=== PATIENT | male | born 1935 | race American Indian/Alaskan Native ===

== ENCOUNTER 2020-10-03 06:40 | Observation (INO) | payer MEDICARE ==
[2020-10-03] MEDS ORDERED: SODIUM CHLORIDE 0.9% 1000 ML 1,000 ML IV ONE ×2 (07:46)
--- NOTE | 2020-10-03 07:53 | Emergency Department Report ---
HPI - General Chief Complaint: Syncope Time Seen by Provider: 10/03/20 07:33 - [facility] HPI: Room 22 The patient is an 85-year-old male present with a chief complaint of weakness. The patient states this morning after attempting to get up to go to the bathroom he began feeling diffusely weak. Patient states he was unable to stand up secondary to this weakness and dizziness. Patient states his legs Giving out. Patient denies losing consciousness. Patient states he has been in his usual state of health the past couple days. Patient denies history of fever cough dysuria or known contact with Covid positive patients. Patient states he has been compliant with his diabetes medication. Patient denies bright red blood per rectum or melena. Patient denies chest pain or shortness of breath ED Past Medical Hx - Past Medical History Previous Medical History?: Yes Hx Diabetes: Yes - Surgical History Past Surgical History?: Yes Additional Surgical History: prostate - Family History Family history: no significant - Social History Smoking Status: Never Smoker Substance Use Type: None - Medications Home Medications: Home Medications Medication Instructions Recorded Confirmed Last Taken Type Dorzolamide 2% Eye Drop 1 drop OU BID 10/03/20 10/03/20 Unknown History Hydrochlorothiazide 12.5 mg PO DAILY 10/03/20 10/03/20 Unknown History Losartan 100 mg PO DAILY 10/03/20 10/03/20 Unknown History Pioglitazone-Metformin 15-500 2 tab PO DAILY 10/03/20 10/03/20 Unknown History Simvastatin 20 mg PO DAILY 10/03/20 10/03/20 Unknown History Warfarin 7.5 mg PO DAILY 10/03/20 10/03/20 Unknown History ED Review of Systems ROS: Stated complaint: SYNCOPE Other details as noted in HPI Constitutional: weakness. denies: fever Eyes: denies: eye pain ENT: denies: throat pain Respiratory: denies: shortness of breath Cardiovascular: denies: chest pain Endocrine: no symptoms reported Gastrointestinal: denies: abdominal pain Genitourinary: denies: dysuria Musculoskeletal: denies: back pain Neurological: denies: headache Physical Exam - Physical Exam Vital Signs: Vital Signs 10/03/20 06:51 Temperature 97.9 F Pulse Rate 72 Respiratory 13 Rate Blood Pressure 94/51 [left arm] O2 Sat by Pulse 100 Oximetry Physical Exam: GENERAL: The patient is well-developed well-nourished male lying on stretcher not appearing to be in acute distress. [] HEENT: Normocephalic. Atraumatic. Extraocular motions are intact. Patient has moist mucous membranes. NECK: Supple. Trachea midline CHEST/LUNGS: Clear to auscultation. There is no respiratory distress noted. HEART/CARDIOVASCULAR: Regular. There is no tachycardia. There is no gallop rub or murmur. ABDOMEN: Abdomen is soft, nontender. Patient has normal bowel sounds. There is no abdominal distention. SKIN: There is no rash. There is no edema. There is no diaphoresis. NEURO: The patient is awake, alert, and oriented. The patient is cooperative. The patient has no focal neurologic deficits. The patient has normal speech MUSCULOSKELETAL: There is no evidence of acute injury. ED Course Vital Signs 10/03/20 06:51 Temperature 97.9 F Pulse Rate 72 Respiratory 13 Rate Blood Pressure 94/51 [left arm] O2 Sat by Pulse 100 Oximetry ED Medical Decision Making - Lab Data Result diagrams: 10/03/20 08:11 10/03/20 08:11 Laboratory Tests 10/03/20 10/03/20 10/03/20 06:47 08:11 08:11 WBC 4.7 RBC 3.86 Hgb 12.3 Hct 36.9 MCV 96 H MCH 32 MCHC 33 RDW 13.9 Plt Count 133 L Lymph % (Auto) 12.8 L Moore % (Auto) 4.6 Eos % (Auto) 0.7 Baso % (Auto) 0.4 Lymph # (Auto) 0.6 L Moore # (Auto) 0.2 Eos # (Auto) 0.0 Baso # (Auto) 0.0 Seg Neutrophils % 81.5 H Seg Neutrophils # 3.9 PT INR APTT VBG pH Sodium 126 L Potassium 5.0 Chloride 89.4 L Carbon Dioxide 25 Anion Gap 17 BUN 41 H Creatinine 2.9 H Estimated GFR 25 BUN/Creatinine Ratio 14 Glucose 680 H* POC Glucose 595 H Lactic Acid Calcium 9.1 Total Bilirubin 0.40 AST 26 ALT 15 Alkaline Phosphatase 116 Total Creatine Kinase 131 CK-MB (CK-2) 4.8 H CK-MB (CK-2) Rel Index 3.6 Troponin T NT-Pro-B Natriuret Pep Total Protein 6.8 Albumin 3.4 L Albumin/Globulin Ratio 1.0 TSH Free T4 Urine Color Urine Turbidity Urine pH Ur Specific [place] Urine Protein Urine Glucose (UA) Urine Ketones Urine Blood Urine Nitrite Urine Bilirubin Urine Urobilinogen Ur Leukocyte Esterase Urine WBC (Auto) Urine RBC (Auto) U Epithel Cells (Auto) Urine Mucus 10/03/20 10/03/20 10/03/20 08:11 08:11 08:11 WBC RBC Hgb Hct MCV MCH MCHC RDW Plt Count Lymph % (Auto) Moore % (Auto) Eos % (Auto) Baso % (Auto) Lymph # (Auto) Moore # (Auto) Eos # (Auto) Baso # (Auto) Seg Neutrophils % Seg Neutrophils # PT 57.9 H INR > 17.67 H* APTT VBG pH Sodium Potassium Chloride Carbon Dioxide Anion Gap BUN Creatinine Estimated GFR BUN/Creatinine Ratio Glucose POC Glucose Lactic Acid 2.90 H* Calcium Total Bilirubin AST ALT Alkaline Phosphatase Total Creatine Kinase CK-MB (CK-2) CK-MB (CK-2) Rel Index Troponin T 0.019 NT-Pro-B Natriuret Pep 550.3 Total Protein Albumin Albumin/Globulin Ratio TSH Free T4 Urine Color Urine Turbidity Urine pH Ur Specific [place] Urine Protein Urine Glucose (UA) Urine Ketones Urine Blood Urine Nitrite Urine Bilirubin Urine Urobilinogen Ur Leukocyte Esterase Urine WBC (Auto) Urine RBC (Auto) U Epithel Cells (Auto) Urine Mucus 10/03/20 10/03/20 10/03/20 08:11 08:11 09:21 WBC RBC Hgb Hct MCV MCH MCHC RDW Plt Count Lymph % (Auto) Moore % (Auto) Eos % (Auto) Baso % (Auto) Lymph # (Auto) Moore # (Auto) Eos # (Auto) Baso # (Auto) Seg Neutrophils % Seg Neutrophils # PT INR APTT VBG pH 7.262 L Sodium Potassium Chloride Carbon Dioxide Anion Gap BUN Creatinine Estimated GFR BUN/Creatinine Ratio Glucose POC Glucose Lactic Acid Calcium Total Bilirubin AST ALT Alkaline Phosphatase Total Creatine Kinase CK-MB (CK-2) CK-MB (CK-2) Rel Index Troponin T NT-Pro-B Natriuret Pep Total Protein Albumin Albumin/Globulin Ratio TSH 2.090 Free T4 1.31 Urine Color Straw Urine Turbidity Clear Urine pH 5.0 Ur Specific [place] 1.018 Urine Protein <15 mg/dl Urine Glucose (UA) >=500 Urine Ketones Neg Urine Blood Sm Urine Nitrite Neg Urine Bilirubin Neg Urine Urobilinogen < 2.0 Ur Leukocyte Esterase Neg Urine WBC (Auto) 1.0 Urine RBC (Auto) 2.0 U Epithel Cells (Auto) 1.0 Urine Mucus Few 10/03/20 10/03/20 10/03/20 10:24 10:48 10:48 WBC RBC Hgb Hct MCV MCH MCHC RDW Plt Count Lymph % (Auto) Moore % (Auto) Eos % (Auto) Baso % (Auto) Lymph # (Auto) Moore # (Auto) Eos # (Auto) Baso # (Auto) Seg Neutrophils % Seg Neutrophils # PT 64.3 H INR APTT 49.2 H VBG pH Sodium Potassium Chloride Carbon Dioxide Anion Gap BUN Creatinine Estimated GFR BUN/Creatinine Ratio Glucose POC Glucose 562 H Lactic Acid 1.70 Calcium Total Bilirubin AST ALT Alkaline Phosphatase Total Creatine Kinase CK-MB (CK-2) CK-MB (CK-2) Rel Index Troponin T NT-Pro-B Natriuret Pep Total Protein Albumin Albumin/Globulin Ratio TSH Free T4 Urine Color Urine Turbidity Urine pH Ur Specific [place] Urine Protein Urine Glucose (UA) Urine Ketones Urine Blood Urine Nitrite Urine Bilirubin Urine Urobilinogen Ur Leukocyte Esterase Urine WBC (Auto) Urine RBC (Auto) U Epithel Cells (Auto) Urine Mucus - EKG Data -: EKG Interpreted by Me EKG shows normal: sinus rhythm Rate: normal - EKG Data When compared to previous EKG there are: previous EKG unavailable Interpretation: nonspecific ST-T wave noah, other (PVC) - Differential Diagnosis Sepsis, ACS, dehydration, symptomatic anemia, DKA Critical care attestation.: If time is entered above; I have spent that time in minutes in the direct care of this critically ill patient, excluding procedure time. ED Disposition Clinical Impression: Near syncope, Weakness, Hyperglycemia Disposition: DC-[id number] OP ADMIT IP TO THIS HOSP Is pt being admited?: Yes Does the pt Need Aspirin: No Condition: Fair Referrals: PRIMARY CARE, [Primary Care Provider] - 3-5 Days Time of Disposition: 11:53 (Hospitalist notified (Dr. Monte))
[2020-10-03 08:39] LABS: Basophils % (Auto) 0.4 % (0.0-1.8); Eosinophils % (Auto) 0.7 % (0.0-4.3); Hematocrit 36.9 % (35.5-45.6); Hemoglobin 12.3 gm/dl (11.8-15.2); Lymphocytes # (Auto) 0.6 K/mm3 (1.2-5.4); Lymphocytes % (Auto) 12.8 % (13.4-35.0); Mean Corpuscular HGB Conc 33 % (32-34); Mean Corpuscular Volume 96 fl (84-94); Monocytes # (Auto) 0.2 K/mm3 (0.0-0.8); Monocytes % (Auto) 4.6 % (0.0-7.3); Platelet Count 133 K/mm3 (140-440); Red Blood Count 3.86 M/mm3 (3.65-5.03); Red Cell Distribution Width 13.9 % (13.2-15.2)
[2020-10-03 09:06] LABS: Creatine Kinase MB 4.8 ng/mL (0.0-4.0)
[2020-10-03 09:09] LABS: Albumin 3.4 g/dL (3.9-5); Calcium 9.1 mg/dL (8.4-10.2)
[2020-10-03 09:26] LABS: INR > 17.67 (0.87-1.13)
[2020-10-03 09:52] LABS: Bilirubin,Urine NEG (Negative); Blood,Urine SM (Negative); Color,Urine Straw (Yellow); Mucus,Urine FEW /HPF; Protein,Urine <15 mg/dL mg/dL (Negative); Urobilinogen,Urine < 2.0 mg/dL (<2.0)
[2020-10-03 10:08] LABS: Free T4 (Free Thyroxine) 1.31 ng/dL (0.76-1.46)
[2020-10-03 11:41] LABS: Partial Thromboplastin Time 49.2 Sec. (24.2-36.6)
[2020-10-03] MEDS ORDERED: ALBUTEROL 2.5 MG/3 ML NEBU IH PRN (11:49)
[2020-10-03] MEDS ORDERED: ONDANSETRON 4 MG/2 ML INJ IV PRN (11:49)
[2020-10-03] MEDS ORDERED: ACETAMINOPHEN 325 MG TAB PO PRN (11:49)
--- NOTE | 2020-10-03 11:49 | History and Physical Report ---
History of Present Illness Chief complaint: I feel weak, and I dont have an appetite History of present illness: 85 YO Male with HTN, DM, HLD,Vascular Dementia, Cerebral Atherosclerosis currently on therapeutic anticoagulation with coumadin presents to ED for evaluation. Patient states that he has been "feeling weak" over the past 3 days with worsening symptoms over the same timeframe. Patient states that he experi enced a sudden onset of worsening symptoms this morning while attempting to ambulate to the bathroom. Patient also acknowledges feeling dizzy and lightheaded. Patient acknowledges decreased exercise tolerance, dyspnea on exertion, dyspnea at rest. EMS was notified and upon arrival the patient was found to be in distress and subsequently transported to [facility] for further care and evaluation of the aforementioned symptoms. The patient was seen and evaluated in the emergency department. All lab and imaging studies reviewed. The patient was found to have symptoms consistent with diastolic congestive heart failure, orthostatic hypotension, uncontrolled diabetes mellitus, malnutrition, debility, and generalized weakness. Patient found to have orthostatic hypotension on exam. Patient also found to have a supratherapeutic INR of 17.67 with increased risk of fall and development of spontaneous hemorrhage. Patient admitted to telemetry and initiated on CHF protocol. Patient treated with vitamin K and transfusion of fresh frozen plasma and discontinuation of therapeutic anticoagulation. Patient denies fever, chills, chest pain, palpitations, productive cough, skin rash, recent ill contacts, or known exposure to COVID-19. No prior admission for review. All medication listed at time of admission has been reconciled. Advanced care planning conducted in ED. Past History Past Medical History: diabetes, hypertension, hyperlipidemia Past Surgical History: Other (prostate) Social history: single. denies: smoking, alcohol abuse Family history: diabetes, hypertension Medications and Allergies Allergies Allergy/AdvReac Type Severity Reaction Status Date / Time No Known Allergies Allergy Verified 10/03/20 11:52 Home Medications Medication Instructions Recorded Confirmed Last Taken Type Dorzolamide 2% Eye Drop 1 drop OU BID 10/03/20 10/03/20 Unknown History Hydrochlorothiazide 12.5 mg PO DAILY 10/03/20 10/03/20 Unknown History Losartan 100 mg PO DAILY 10/03/20 10/03/20 Unknown History Pioglitazone-Metformin 15-500 2 tab PO DAILY 10/03/20 10/03/20 Unknown History Simvastatin 20 mg PO DAILY 10/03/20 10/03/20 Unknown History Warfarin 7.5 mg PO DAILY 10/03/20 10/03/20 Unknown History Review of Systems Constitutional: no weight loss, no weight gain, no chills, no sweats Ears, nose, mouth and throat: no ear pain, no tinnitis, no nasal congestion, no nasal discharge, no sinus pressure Cardiovascular: shortness of breath, dyspnea on exertion, decreased exercise tolerance, no chest pain, no orthopnea, no palpitations, no rapid/irregular heart beat, no edema Respiratory: no cough, no cough with sputum, no excessive sputum Gastrointestinal: no abdominal pain, no nausea, no vomiting, no diarrhea Genitourinary Male: no hematuria, no nocturia Rectal: no pain, no incontinence Musculoskeletal: no neck stiffness, no shooting arm pain, no shooting leg pain, no redness of joints Integumentary: no rash, no pruritis, no sores Neurological: no head injury, no weakness, no parathesias Psychiatric: no anxiety, no sleep disturbances, no hypersomnia, no change in appetite, no disorientation Endocrine: no cold intolerance, no excessive thirst, no polydipsia, no excessive sweating Hematologic/Lymphatic: no easy bruising, no easy bleeding Allergic/Immunologic: no urticaria, no allergic rhinitis, no wheezing, no persistent infections, no anaphylaxis, no angioedema Exam - Constitutional Vitals: Temp Pulse Resp BP Pulse Ox 97.9 F 59 L 11 L 93/61 97 10/03/20 06:51 10/03/20 10:30 10/03/20 10:30 10/03/20 10:30 10/03/20 10:30 General appearance: Present: mild distress, cachectic - EENT Eyes: Present: PERRL ENT: hearing intact, clear oral mucosa - Neck Neck: Present: supple, normal ROM - Respiratory Respiratory effort: normal Respiratory: bilateral: CTA - Cardiovascular Heart Sounds: Present: S1 & S2. Absent: rub, click - Extremities Extremities: pulses symmetrical, No edema Peripheral Pulses: within normal limits - Abdominal General gastrointestinal: Present: soft, non-tender, non-distended, normal bowel sounds Male genitourinary: Present: normal - Integumentary Integumentary: Present: clear, warm, dry - Musculoskeletal Musculoskeletal: generalized weakness - Psychiatric Psychiatric: appropriate mood/affect, intact judgment & insight - Neurologic Neurologic: CNII-XII intact, moves all extremities, no gait normal HEART Score - HEART Score Troponin: Troponin T 0.019 ng/mL (0.00-0.029) 10/03/20 08:11 Results - Labs CBC & Chem 7: 10/03/20 08:11 10/04/20 11:15 Labs: Abnormal lab results 10/03/20 10/03/20 10/03/20 Range/Units 06:47 08:11 08:11 MCV 96 H (84-94) fl Plt Count 133 L (140-440) K/mm3 Lymph % (Auto) 12.8 L (13.4-35.0) % Lymph # (Auto) 0.6 L (1.2-5.4) K/mm3 Seg Neutrophils % 81.5 H (40.0-70.0) % PT (12.2-14.9) Sec. INR (0.87-1.13) APTT (24.2-36.6) Sec. VBG pH (7.320-7.420) Sodium 126 L (137-145) mmol/L Chloride 89.4 L (98-107) mmol/L BUN 41 H (9-20) mg/dL Creatinine 2.9 H (0.8-1.3) mg/dL Glucose 680 H* (75-100) mg/dL POC Glucose 595 H (70-105) mg/dL Lactic Acid (0.7-2.0) mmol/L CK-MB (CK-2) 4.8 H (0.0-4.0) ng/mL Albumin 3.4 L (3.9-5) g/dL 10/03/20 10/03/20 10/03/20 Range/Units 08:11 08:11 08:11 MCV (84-94) fl Plt Count (140-440) K/mm3 Lymph % (Auto) (13.4-35.0) % Lymph # (Auto) (1.2-5.4) K/mm3 Seg Neutrophils % (40.0-70.0) % PT 57.9 H (12.2-14.9) Sec. INR > 17.67 H* (0.87-1.13) APTT (24.2-36.6) Sec. VBG pH 7.262 L (7.320-7.420) Sodium (137-145) mmol/L Chloride (98-107) mmol/L BUN (9-20) mg/dL Creatinine (0.8-1.3) mg/dL Glucose (75-100) mg/dL POC Glucose (70-105) mg/dL Lactic Acid 2.90 H* (0.7-2.0) mmol/L CK-MB (CK-2) (0.0-4.0) ng/mL Albumin (3.9-5) g/dL 10/03/20 10/03/20 Range/Units 10:24 10:48 MCV (84-94) fl Plt Count (140-440) K/mm3 Lymph % (Auto) (13.4-35.0) % Lymph # (Auto) (1.2-5.4) K/mm3 Seg Neutrophils % (40.0-70.0) % PT 64.3 H (12.2-14.9) Sec. INR (0.87-1.13) APTT 49.2 H (24.2-36.6) Sec. VBG pH (7.320-7.420) Sodium (137-145) mmol/L Chloride (98-107) mmol/L BUN (9-20) mg/dL Creatinine (0.8-1.3) mg/dL Glucose (75-100) mg/dL POC Glucose 562 H (70-105) mg/dL Lactic Acid (0.7-2.0) mmol/L CK-MB (CK-2) (0.0-4.0) ng/mL Albumin (3.9-5) g/dL Assessment and Plan - Patient Problems (1) Diastolic CHF Current Visit: Yes Status: Acute Qualifiers: Heart failure chronicity: acute Qualified Code(s): I50.31 - Acute diastolic (congestive) heart failure Plan to address problem: Strict I/O, monitor urine output every shift, daily weight, afterload reduction, blood pressure control, echocardiogram ordered and is pending at time of admission, supportive care. (2) Supratherapeutic INR Current Visit: Yes Status: Acute Plan to address problem: INR repeated and found to be supratherapeutic. Patient treated with FFP and vitamin K with repeat coagulation profile. (3) Uncontrolled diabetes mellitus Current Visit: Yes Status: Acute Qualifiers: Glycemic state: with hyperglycemia Plan to address problem: Sliding-scale insulin therapy, Accu-Chek, consistent carbohydrate diet, hypoglycemia protocol. (4) Debility Current Visit: Yes Status: Acute Plan to address problem: Physical therapy consulted, supportive care. (5) Vascular dementia Current Visit: Yes Status: Acute Qualifiers: Dementia behavioral disturbance: without behavioral disturbance Qualified Code(s): F01.50 - Vascular dementia without behavioral disturbance Plan to address problem: Supportive care, verbal prompting, verbal redirection, supportive care, benzodiazepine therapy as clinically indicated (6) Cerebral atherosclerosis Current Visit: Yes Status: Acute Plan to address problem: Supportive care, hold anticoagulation at this time due to supratherapeutic INR. (7) DVT prophylaxis Current Visit: Yes Status: Acute Plan to address problem: SCD to bilateral lower extremities while in bed, patient INR is currently supratherapeutic. Hold anticoagulation at this time. (8) Advance care planning Current Visit: Yes Status: Acute Plan to address problem: Disease education conducted, care plan discussed, prognosis discussed, patient is full code, patient knowledges understanding and agreement with care plan, +30 minutes.
[2020-10-03 12:29] LABS: INR > 17.67 (0.87-1.13)
[2020-10-03] MEDS ORDERED: SODIUM CHLORIDE 0.9% 500 ML 500 ML IV NR (14:58)
[2020-10-03] MEDS ORDERED: DEXTROSE 50% IN WATER (25GM) 50 ML SYRINGE IV PRN (15:09)
[2020-10-03] MEDS ORDERED: PHYTONADIONE(ADULT ONLY) 10 MG in SODIUM CHLORIDE 0.9% 50 ML IV ONE (15:30)
[2020-10-03] MEDS: INSULIN LISPRO 100 UNIT/ML VIAL 3 mL SUB-Q SCH ×2 (16:35→22:45)
[2020-10-03] MEDS ORDERED: DORZOLAMIDE 2% OU SCH (22:00)
[2020-10-03] MEDS ORDERED: EYE OU SCH (22:00)
[2020-10-03] MEDS: PRAVASTATIN 40 MG TAB PO SCH (22:46)
[2020-10-04] MEDS: INSULIN LISPRO 100 UNIT/ML VIAL 3 mL SUB-Q SCH ×4 (05:35→22:22)
[2020-10-04] MEDS ORDERED: NON-FORMULARY EACH (Simvastatin 20 MG) PO SCH (10:00)
[2020-10-04 11:58] LABS: INR 1.13 (0.87-1.13)
[2020-10-04] MEDS ORDERED: PNEUMOCOCCAL 23 Valent 0.5 ML VIAL IM ONE (12:00)
[2020-10-04] MEDS ORDERED: FLU VACC QUAD 2020-2021 (6 months +)/PF 60 0.5 ML SYRINGE IM ONE (12:00)
[2020-10-04 12:06] LABS: Calcium 9.2 mg/dL (8.4-10.2)
--- NOTE | 2020-10-04 19:32 | Progress Note ---
Assessment and Plan - Patient Problems (1) Diastolic CHF Current Visit: Yes Status: Acute Qualifiers: Heart failure chronicity: acute Qualified Code(s): I50.31 - Acute diastolic (congestive) heart failure Plan to address problem: Strict I/O, monitor urine output every shift, daily weight, afterload reduction, blood pressure control, echocardiogram reviewed (2) Supratherapeutic INR Current Visit: Yes Status: Acute Plan to address problem: Resolved (3) Uncontrolled diabetes mellitus Current Visit: Yes Status: Acute Qualifiers: Glycemic state: with hyperglycemia Plan to address problem: Sliding-scale insulin therapy, Accu-Chek, consistent carbohydrate diet, hypogly cemia protocol. (4) Debility Current Visit: Yes Status: Acute Plan to address problem: Physical therapy consulted, supportive care. (5) Vascular dementia Current Visit: Yes Status: Acute Qualifiers: Dementia behavioral disturbance: without behavioral disturbance Qualified Code(s): F01.50 - Vascular dementia without behavioral disturbance Plan to address problem: Supportive care, verbal prompting, verbal redirection, supportive care, benzodiazepine therapy as clinically indicated (6) Acute kidney injury (MAMADOU) with acute tubular necrosis (ATN) Current Visit: Yes Status: Acute Plan to address problem: Monitor urine output every shift, IV fluid resuscitation therapy, repeat BMP, monitor GFR, monitor serum creatinine. (7) Cerebral atherosclerosis Current Visit: Yes Status: Acute Plan to address problem: Supportive care, hold anticoagulation at this time due to supratherapeutic INR. (8) Advance care planning Current Visit: Yes Status: Acute Plan to address problem: Disease education conducted, care plan discussed, prognosis discussed, patient is full code, patient knowledges understanding and agreement with care plan, +30 minutes. (9) DVT prophylaxis Current Visit: Yes Status: Acute Plan to address problem: SCD to bilateral lower extremities while in bed. Hold anticoagulation at this time. History Interval history: 85 YO Male HD #2 with CHF, Supratherapeutic INR, MAMADOU with ATN, HTN, DM, HLD,Vascular Dementia, Cerebral Atherosclerosis. Patient acknowledges feeling weak. Patient denies pain. No reported nursing events. No active bleeding. INR has normalized with supportive therapy. Hospitalist Physical - Constitutional Vitals: Temp Pulse Resp BP Pulse Ox 98 F 36 L 18 98/57 98 10/04/20 15:00 10/04/20 15:58 10/04/20 08:20 10/04/20 15:00 10/04/20 15:58 General appearance: Present: mild distress, cachectic - EENT Eyes: Present: PERRL ENT: hearing intact - Neck Neck: Present: supple - Respiratory Respiratory: bilateral: CTA - Cardiovascular Rhythm: regular Heart Sounds: Present: S1 & S2 - Extremities Extremities: no ischemia Peripheral Pulses: within normal limits - Abdominal General gastrointestinal: soft, non-tender, non-distended - Integumentary Integumentary: Present: clear, dry - Psychiatric Psychiatric: appropriate mood/affect, cooperative - Neurologic Neurologic: CNII-XII intact HEART Score - HEART Score Troponin: Troponin T 0.019 ng/mL (0.00-0.029) 10/03/20 08:11 Results - Labs CBC & Chem 7: 10/03/20 08:11 10/04/20 11:15 Labs: Laboratory Last Values WBC 4.7 K/mm3 (4.5-11.0) 10/03/20 08:11 RBC 3.86 M/mm3 (3.65-5.03) 10/03/20 08:11 Hgb 12.3 gm/dl (11.8-15.2) 10/03/20 08:11 Hct 36.9 % (35.5-45.6) 10/03/20 08:11 MCV 96 fl (84-94) H 10/03/20 08:11 MCH 32 pg (28-32) 10/03/20 08:11 MCHC 33 % (32-34) 10/03/20 08:11 RDW 13.9 % (13.2-15.2) 10/03/20 08:11 Plt Count 133 K/mm3 (140-440) L 10/03/20 08:11 Lymph % (Auto) 12.8 % (13.4-35.0) L 10/03/20 08:11 [place] % (Auto) 4.6 % (0.0-7.3) 10/03/20 08:11 Eos % (Auto) 0.7 % (0.0-4.3) 10/03/20 08:11 Baso % (Auto) 0.4 % (0.0-1.8) 10/03/20 08:11 Lymph # (Auto) 0.6 K/mm3 (1.2-5.4) L 10/03/20 08:11 [place] # (Auto) 0.2 K/mm3 (0.0-0.8) 10/03/20 08:11 Eos # (Auto) 0.0 K/mm3 (0.0-0.4) 10/03/20 08:11 Baso # (Auto) 0.0 K/mm3 (0.0-0.1) 10/03/20 08:11 Seg Neutrophils % 81.5 % (40.0-70.0) H 10/03/20 08:11 Seg Neutrophils # 3.9 K/mm3 (1.8-7.7) 10/03/20 08:11 PT 14.4 Sec. (12.2-14.9) 10/04/20 11:15 INR 1.13 (0.87-1.13) 10/04/20 11:15 APTT 49.2 Sec. (24.2-36.6) H 10/03/20 10:48 VBG pH 7.262 (7.320-7.420) L 10/03/20 08:11 Sodium 131 mmol/L (137-145) L 10/04/20 11:15 Potassium 4.3 mmol/L (3.6-5.0) 10/04/20 11:15 Chloride 95.8 mmol/L (98-107) L 10/04/20 11:15 Carbon Dioxide 27 mmol/L (22-30) 10/04/20 11:15 Anion Gap 13 mmol/L 10/04/20 11:15 BUN 34 mg/dL (9-20) H 10/04/20 11:15 Creatinine 2.1 mg/dL (0.8-1.3) H 10/04/20 11:15 Estimated GFR 37 ml/min 10/04/20 11:15 BUN/Creatinine Ratio 16 % 10/04/20 11:15 Glucose 277 mg/dL (75-100) H 10/04/20 11:15 POC Glucose 294 mg/dL (70-105) H 10/04/20 15:56 Lactic Acid 1.70 mmol/L (0.7-2.0) 10/03/20 10:48 Calcium 9.2 mg/dL (8.4-10.2) 10/04/20 11:15 Total Bilirubin 0.40 mg/dL (0.1-1.2) 10/03/20 08:11 AST 26 units/L (5-40) 10/03/20 08:11 ALT 15 units/L (7-56) 10/03/20 08:11 Alkaline Phosphatase 116 units/L (35-129) 10/03/20 08:11 Total Creatine Kinase 131 units/L (55-170) 10/03/20 08:11 CK-MB (CK-2) 4.8 ng/mL (0.0-4.0) H 10/03/20 08:11 CK-MB (CK-2) Rel Index 3.6 (0-4) 10/03/20 08:11 Troponin T 0.019 ng/mL (0.00-0.029) 10/03/20 08:11 NT-Pro-B Natriuret Pep 550.3 pg/mL (0-900) 10/03/20 08:11 Total Protein 6.8 g/dL (6.3-8.2) 10/03/20 08:11 Albumin 3.4 g/dL (3.9-5) L 10/03/20 08:11 Albumin/Globulin Ratio 1.0 % 10/03/20 08:11 TSH 2.090 mlU/mL (0.270-4.200) 10/03/20 08:11 Free T4 1.31 ng/dL (0.76-1.46) 10/03/20 08:11 Urine Color Straw (Yellow) 10/03/20 09:21 Urine Turbidity Clear (Clear) 10/03/20 09:21 Urine pH 5.0 (5.0-7.0) 10/03/20 09:21 Ur Specific [place] 1.018 (1.003-1.030) 10/03/20 09:21 Urine Protein <15 mg/dl mg/dL (Negative) 10/03/20 09:21 Urine Glucose (UA) >=500 mg/dL (Negative) 10/03/20 09:21 Urine Ketones Neg mg/dL (Negative) 10/03/20 09:21 Urine Blood Sm (Negative) 10/03/20 09:21 Urine Nitrite Neg (Negative) 10/03/20 09:21 Urine Bilirubin Neg (Negative) 10/03/20 09:21 Urine Urobilinogen < 2.0 mg/dL (<2.0) 10/03/20 09:21 Ur Leukocyte Esterase Neg (Negative) 10/03/20 09:21 Urine WBC (Auto) 1.0 /HPF (0.0-6.0) 10/03/20 09:21 Urine RBC (Auto) 2.0 /HPF (0.0-6.0) 10/03/20 09:21 U Epithel Cells (Auto) 1.0 /HPF (0-13.0) 10/03/20 09:21 Urine Mucus Few /HPF 10/03/20 09:21 Blood Type O POSITIVE 10/03/20 18:51 Microbiology: Microbiology 10/03/20 08:11 Peripheral/Venous Blood Culture - Preliminary NO GROWTH AFTER 24 HOURS 10/03/20 08:11 Peripheral/Venous Blood Culture - Preliminary NO GROWTH AFTER 24 HOURS - Diagnostic Impressions Diagnostic Impressions: Echocardiogram 10/03/20 11:51 Transthoracic Echocardiogram Indication: Syncope BP: 93/61 HR: 51 Conclusions *Global left ventricular systolic function is normal. *The estimated ejection fraction is 50-55%. *Abnormal left ventricular diastolic filling is observed, consistent with impaired relaxation. *The right ventricular global systolic function is normal. *There is mild aortic regurgitation. *There is no evidence of mitral regurgitation. *There is mild to moderate tricuspid regurgitation. *The right ventricular systolic pressure is calculated at 37 mmHg. *There is mild dilatation of the ascending aorta. Findings Left Ventricle: The left ventricular chamber size is normal. Global left ventricular systolic function is normal. The estimated ejection fraction is 50-55%. Abnormal left ventricular diastolic filling is observed, consistent with impaired relaxation. Left Atrium: The left atrial chamber size is normal. Right Ventricle: The right ventricular cavity size is normal. The right ventricular global systolic function is normal. Right Atrium: The right atrial cavity size is normal. Aortic Valve: The aortic valve leaflets are mildly thickened. There is mild aortic regurgitation. Mitral Valve: There is mitral annular calcification. The mitral valve leaflets are mildly thickened. There is no evidence of mitral regurgitation. Tricuspid Valve: The tricuspid valve leaflets are normal. There is mild to moderate tricuspid regurgitation. The right ventricular systolic pressure is calculated at 37 mmHg. Pulmonic Valve: The pulmonic valve is not well visualized. Pericardium: There is no pericardial effusion. Aorta: There is mild dilatation of the ascending aorta. Venous: The inferior vena cava appears normal. Measurements Chambers 2D Name Value Normal Range IVSd (2D) 1.06 cm (0.6 - 1.1) LVPWd (2D) 1 cm (0.6 - 1.1) LVIDd (2D) 4.57 cm (3.7 - 5.6) LVIDs (2D) 3.68 cm (2 - 3.8) LV FS (2D) 19.4 % - EF Teichholz (2D) 40 % - Ao root diameter (2D) 4.12 cm (2 - 3.7) Volumes/Mass Name Value Normal Range LA ESV SP 4CH (A/L) 18.57 ml - LA ESV SP 2CH (A/L) 55.7 ml - LA ESV BP (A/L) 35.84 ml - LA ESV BP (A/L) index 17.31 ml/m2 - LA ESV SP 4CH (MOD) 16.79 ml - LA ESV SP 2CH (MOD) 53.99 ml - LA ESV BP (MOD) 33.19 ml - LA ESV BP (MOD) index 16.03 ml/m2 - Diastolic/Systolic Function Name Value Normal Range MV E-wave Vmax 0.36 m/sec - MV deceleration time 223.7 msec - MV A-wave Vmax 0.79 m/sec - MV E:A ratio 0.46 ratio - Aortic Valve Name Value Normal Range AV Vmax 1.15 m/sec - AV VTI 22.71 cm - AV peak gradient 5.31 mmHg - AV mean gradient 2.94 mmHg - LVOT diameter 2.07 cm - LVOT Vmax 0.98 m/sec - LVOT VTI 23.86 cm - LVOT peak gradient 3.82 mmHg - LVOT mean gradient 2 mmHg - SV LVOT 80.57 ml - ENRIQUE (continuity Vmax) 2.86 cm2 - ENRIQUE (continuity VTI) 3.55 cm2 - AR PHT 679.44 msec - AR peak gradient 68.68 mmHg - Tricuspid Valve Name Value Normal Range TR Vmax 2.9 m/sec - TR peak gradient 34 mmHg - RAP 3 mmHg - RVSP 37 mmHg - Day/IV: Voiding Method Toilet IV Catheter Type [left ac] Peripheral IV IV Catheter Type [Right INT / Saline Lock Antecubital] Active Medications - Current Medications Current Medications: Generic Name Dose Route Start Last Admin Trade Name Freq PRN Reason Stop Dose Admin Acetaminophen 650 mg 10/03/20 11:49 Acetaminophen 325 Mg Tab PO Q4H PRN Pain MILD(1-3)/Fever >100.5/CHAO Albuterol 2.5 mg 10/03/20 11:49 Albuterol 2.5 Mg/3 Ml Nebu IH Q4HRT PRN Shortness Of Breath Dextrose 50 ml 10/03/20 15:09 Dextrose 50% In Water (25gm) 50 Ml Syringe IV Q30MIN PRN Hypoglycemia Protocol Insulin Human Lispro 0 unit 10/03/20 16:00 10/04/20 18:48 Insulin Lispro 100 Unit/Ml Vial 3 Ml SUB-Q 6 unit Q6H EVERETT Administration Protocol Miscellaneous Medication 1 drop 10/03/20 22:00 Dorzolamide 2% Eye Drop OU BID EVERETT Ondansetron HCl 4 mg 10/03/20 11:49 Ondansetron 4 Mg/2 Ml Inj IV Q8H PRN Nausea And Vomiting Pravastatin Sodium 40 mg 10/03/20 22:00 10/03/20 22:46 Pravastatin 40 Mg Tab PO 40 mg QHS EVERETT Administration Sodium Chloride 10 ml 10/03/20 22:00 10/03/20 22:46 Sodium Chloride 0.9% 10 Ml Flush Syringe IV 10 ml BID EVERETT Administration Sodium Chloride 10 ml 10/03/20 11:49 Sodium Chloride 0.9% 10 Ml Flush Syringe IV PRN PRN LINE FLUSH Nutrition/Malnutrition Assess - Dietary Evaluation Nutrition/Malnutrition Findings: Nutrition Notes Start: 10/04/20 10:08 Freq: Status: Active Protocol: Document 10/04/20 10:08 LM (Rec: 10/04/20 10:15 LM [id number]) Nutrition Notes Need for Assessment generated from: MD Order,bus mechanic,MST Initial or Follow up Assessment Current Diagnosis Diabetes,Hypertension,Heart Failure,Hyperlipidemia Other Pertinent Diagnosis Dementia Current Diet Cardiac/consistent CHO Labs/Tests Reviewed Pertinent Medications Reviewed Height 6 ft 4 in Weight 81.6 kg Usual Body Weight 98 kg [place] Body Weight (kg) 91.81 BMI 21.9 Weight change and time frame 8% wt loss in 2 months Weight Status Underweight Subjective/Other Information MD consult for poor oral intake and ONS. RN screen for MST. Pt stated he ate some of breafkast. Observed pt ate 75% of breakfast tray. Pt stated he has lost 15 lb in 2 months. Pt has clavicle wasting. Burn Absent Trauma Absent GI Symptoms None Current % PO Good (75-100%) Minimum of two criteria Yes Interpretation of Weight Loss (severe) >5% in 1 month Muscle Mass Mild Depletion (non-severe) #1 Nutrition Diagnosis Malnutrition Etiology advanced age, chronic illness As Evidenced by Signs and Symptoms Pt with 8% wt loss in 2 months , clavicle wasting Is patient on ventilator? No Is Patient Ambulatory and/or Out of Bed No REE-([facility]-confined to bed) [phone] Calculation Used for Recommendations [facility] Additional Notes Protein: 98-123g (1.2-1.5g/kg) Fluid: 1ml/kcal Nutrition Intervention Change Diet Order: continue Add Supplement/Snack (indicate name/kcal Glucerna daily /protein ) Provides kCal: 220 Provides Protein (gm) 10 Goal #1 Meet at least 75% of energy and protein needs Anticipated Discharge Needs: cardiac/consistent CHO Follow-Up By: 10/09/20 Additional Comments F/U for PO/ONS intakes
[2020-10-04] MEDS: PRAVASTATIN 40 MG TAB PO SCH (22:23)
[2020-10-05] MEDS: INSULIN LISPRO 100 UNIT/ML VIAL 3 mL SUB-Q SCH ×3 (04:29→16:35)
--- NOTE | 2020-10-05 08:59 | Discharge Summary ---
Providers - Providers Date of Admission: 10/03/20 11:49 Attending physician: AMADO KRUSE MD 10/04/20 01:20 Consult to Dietitian/Nutrition [CONS] Routine Physician Instructions: Reason For Exam: Reason for Consult: Poor oral intake 10/05/20 08:38 Physical Therapy Evaluation and Treat [CONS] Routine Comment: Reason For Exam: debility 10/05/20 08:39 Occupational Therapy Evaluate and Treat [CONS] Routine Comment: Reason For Exam: weakness Primary care physician: SPORTS ANALYST Hospitalization Reason for admission: Generalized weakness Condition: Stable Hospital course: 85 YO Male with HTN, DM, HLD,Vascular Dementia, Cerebral Atherosclerosis currently on therapeutic anticoagulation with coumadin presents to ED for eval uation. Patient states that he has been "feeling weak" over the past 3 days with worsening symptoms over the same timeframe. Patient states that he experienced a sudden onset of worsening symptoms this morning while attempting to ambulate to the bathroom. Patient also acknowledges feeling dizzy and lightheaded. Patient acknowledges decreased exercise tolerance, dyspnea on exertion, dyspnea at rest. EMS was notified and upon arrival the patient was found to be in distress and subsequently transported to [facility] for further care and evaluation of the aforementioned symptoms. The patient was seen and evaluated in the emergency department. All lab and imaging studies reviewed. The patient was found to have symptoms consistent with diastolic congestive heart failure, orthostatic hypotension, uncontrolled diabetes mellitus, malnutrition, debility, and generalized weakness. Patient found to have orthostatic hypotension on exam. Patient also found to have a supratherapeutic INR of 17.67 with increased risk of fall and development of spontaneous hemorrhage. Patient admitted to telemetry and initiated on CHF protocol. Patient treated with vitamin K and transfusion of fresh frozen plasma and discontinuation of therapeutic anticoagulation. Patient denies fever, chills, chest pain, palpitations, productive cough, skin rash, recent ill contacts, or known exposure to COVID-19. No prior admission for review. All medication listed at time of admission has been reconciled. Advanced care planning conducted in ED. 10/05: Patient informs me that he came to the hospital because he was weak all over. He reports significant improvement. He was also noted to have supratherapeutic INR which has improved. There was no clear documentation of a fall. PT OT has been ordered today based on their recommendation we will plan on discharge also ordered a CT of the head to rule out any other pathology resulted in profound weakness or bleed as patient had did have supratherapeutic INR. We will restart him on a lower dose Coumadin and advised discussion with his plant sprayer at discharge. I also recommended an outpatient nephrology evaluation as patient did have acute kidney injury which is now resolving. Also due to low blood pressure I also discontinued lisinopril and hydrochlorothiazide in the setting of acute kidney injury patient's blood pressure systolic is 107 despite this. (1) Diastolic CHF Current Visit: Yes Status: Acute Qualifiers: Heart failure chronicity: acute Qualified Code(s): I50.31 - Acute diastolic (congestive) heart failure Plan to address problem: Strict I/O, monitor urine output every shift, daily weight, afterload reduction, blood pressure control, echocardiogram reviewed (2) Supratherapeutic INR Current Visit: Yes Status: Acute Plan to address problem: Resolved (3) Uncontrolled diabetes mellitus Current Visit: Yes Status: Acute Qualifiers: Glycemic state: with hyperglycemia Plan to address problem: Sliding-scale insulin therapy, Accu-Chek, consistent carbohydrate diet, hypoglycemia protocol. (4) Debility Current Visit: Yes Status: Acute Plan to address problem: Physical therapy consulted, supportive care. (5) Vascular dementia Current Visit: Yes Status: Acute Qualifiers: Dementia behavioral disturbance: without behavioral disturbance Qualified Code(s): F01.50 - Vascular dementia without behavioral disturbance Plan to address problem: Supportive care, verbal prompting, verbal redirection, supportive care, benzodiazepine therapy as clinically indicated (6) Acute kidney injury (MAMADOU) with acute tubular necrosis (ATN) Current Visit: Yes Status: Acute Plan to address problem: Monitor urine output every shift, IV fluid resuscitation therapy, repeat BMP, monitor GFR, monitor serum creatinine. (7) Cerebral atherosclerosis Current Visit: Yes Status: Acute Plan to address problem: Supportive care, hold anticoagulation at this time due to supratherapeutic INR. (8) Advance care planning Current Visit: Yes Status: Acute Plan to address problem: Disease education conducted, care plan discussed, prognosis discussed, patient is full code, patient knowledges understanding and agreement with care plan, +30 minutes. (9) DVT prophylaxis Current Visit: Yes Status: Acute Plan to address problem: SCD to bilateral lower extremities while in bed. Hold anticoagulation at this time. Disposition: [id number]/[place]-06 HOME UNDER HOME [facility] Time spent for discharge: 35 minutes Core Measure Documentation - Palliative Care Palliative Care/ Comfort Measures: Not Applicable - Core Measures Any of the following diagnoses?: none Exam - Physical Exam Narrative exam: General appearance: Present: NO distress, cachectic - EENT Eyes: Present: PERRL ENT: hearing intact, clear oral mucosa - Neck Neck: Present: supple, normal ROM - Respiratory Respiratory effort: normal Respiratory: bilateral: CTA - Cardiovascular Heart Sounds: Present: S1 & S2. Absent: rub, click - Extremities Extremities: pulses symmetrical, No edema Peripheral Pulses: within normal limits - Abdominal General gastrointestinal: Present: soft, non-tender, non-distended, normal bowel sounds Male genitourinary: Present: normal - Integumentary Integumentary: Present: clear, warm, dry - Musculoskeletal Musculoskeletal: generalized weakness - Psychiatric Psychiatric: appropriate mood/affect, intact judgment & insight - Neurologic Neurologic: CNII-XII intact, moves all extremities, no gait normal - Constitutional Vitals: Temp Pulse Resp BP Pulse Ox 98.0 F 74 20 107/61 98 10/05/20 05:13 10/05/20 05:13 10/05/20 05:13 10/05/20 05:13 10/05/20 05:13 Plan Activity: advance as tolerated, fall precautions Diet: low fat, low salt Special Instructions: record daily weights, record daily BP diary Additional Instructions: PLEASE FOLLOW WITH PCP AND DESIGN/ANIMATION INSTRUCTOR AND RENAL DOCTOR FOR REPEAT LABS IN 2-3 DAYS Follow up with: PRIMARY CARE, [Primary Care Provider] - 3-5 Days Prescriptions: Warfarin [Coumadin] 5 mg PO QDAY 30 Days #30 tablet
[2020-10-05 10:16] VITALS: BP 105/68
--- NOTE | 2020-10-05 12:52 | Cat Scan Report ---
CT HEAD WITHOUT CONTRAST HISTORY: FALL COMPARISON: None TECHNIQUE: CT imaging of the head was performed in the axial, sagittal, and coronal projections and bone algori thm in axial projection in the soft tissue algorithm. All CT scans at this location are performed using CT dose reduction for ALARA by means of automated e xposure control. CONTRAST: None. FINDINGS: Cerebral and Cerebellar Hemispheres: Diffuse cerebral atrophy is present. 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 No midline sh ift. No acute hemorrhage. No acute cortical infarction. No extra-axial fluid collection. Ventricles: Normal in size and configuration for age. Osseous Structures: No significant abnormality. Visualized Paranasal Sinuses: No significant abnormality. Additional Findings: None IMPRESSION: 1. No acute intracranial abnormality. If clinical symptoms persist recommend repeat examination NOTE: Acute infarct may not be visible by noncontrast CT. Signer Name: Candelario Melgar MD Signed: 10/05/2020 12:48 PM Workstation Name: [id number]
== END 2020-10-05 18:30 | disposition home health service (06) ==
LOC: ED 06:40 → 3A 11:49 → 4A 15:10
PROVIDERS: ADMIT Internal Medicine; ATTEND Internal Medicine
DX: G93.41 Metabolic encephalopathy (principal); I11.0 Hypertensive heart disease with heart failure; I50.31 Acute diastolic (congestive) heart failure; E11.65 Type 2 diabetes mellitus with hyperglycemia; E78.5 Hyperlipidemia, unspecified; R79.1 Abnormal coagulation profile; F01.51 Vascular dementia, unspecified severity, with behavioral disturbance; N17.0 Acute kidney failure with tubular necrosis; I70.90 Unspecified atherosclerosis; I67.2 Cerebral atherosclerosis; R53.81 Other malaise; R55 Syncope and collapse; R53.1 Weakness; Z23 Encounter for immunization; Z79.01 Long term (current) use of anticoagulants; Z98.890 Other specified postprocedural states; Z79.899 Other long term (current) drug therapy
CPT/HCPCS: 36415; 70450; 80048; 80053; 81001; 82140; 82550; 82553; 82805; 82962; 83880; 84439; 84443; 84484; 85025; 85610; 85730; 86900; 86901; 87040; 90732; 93005; 93306; 96361; 96365; 97162; 99284; A9270; G0009; G0378; J1815; J3430; J7030; J7040; P9017; 90471; 90686